=== PATIENT | male | born 1955 | race Caucasian/White ===

== ENCOUNTER → 2018-02-25 15:56 | Outpatient (CLI) | payer OTHER, SELFPAY ==
[2018-02-25 17:58] LABS: Hemoglobin A1c 5.6 % (4.2-6.3)
== END ==
PROVIDERS: Family Provider Family Medicine; PCP Family Medicine; Visit Provider Family Medicine
DX: E78.5 Hyperlipidemia, unspecified (principal); E11.9 Type 2 diabetes mellitus without complications
CPT/HCPCS: 36415; 83036

== ENCOUNTER → 2018-05-28 07:38 | Outpatient (CLI) | payer OTHER, SELFPAY ==
[2018-05-28 08:34] LABS: Cholesterol 113 mg/dL (200); Hemoglobin A1c 5.4 % (4.2-6.3); High Density Lipoprotein 48 mg/dL; Triglycerides 66 mg/dL; Very Low Density Lipoprotein 13 mg/dL (5-40)
== END ==
PROVIDERS: Family Provider Family Medicine; PCP Family Medicine; Visit Provider Family Medicine
DX: E78.5 Hyperlipidemia, unspecified (principal); E11.9 Type 2 diabetes mellitus without complications
CPT/HCPCS: 36415; 80061; 83036

== ENCOUNTER → 2018-11-26 07:18 | Outpatient (CLI) | payer OTHER, SELFPAY ==
[2018-11-22 09:36] VITALS: BMI 28.0
[2018-11-26 08:21] LABS: Albumin, Serum 3.8 g/dL (3.2-5.0); BUN 14 mg/dL (7-18); BUN/Creat Ratio 15.7 RATIO (10-20); Creatinine, Serum 0.89 mg/dL (0.70-1.30); EST Glomerular Filtration Rate 91 mL/min (>60); Est Glom Filt Rate - Afr Amer 110 mL/min (>60); Glucose 96 mg/dL (74-106); Protein, Total 6.9 g/dL (6.4-8.2)
[2018-11-26 08:22] LABS: ALB/GLOB Ratio 1.2 RATIO (0.9-2.4); AST(SGOT) 18 U/L (15-37); Alanine Aminotransfer ALT/SGPT 33 U/L (16-61); Alkaline Phosphatase 84 U/L (45-117); Anion Gap 6 (5-15); Calcium,Total 8.4 mg/dL (8.5-10.1); Chloride 108 mmol/L (98-107); Cholesterol 111 mg/dL (200); Globulin 3.1 g/dL (2.2-4.2); High Density Lipoprotein 47 mg/dL; Potassium 4.1 mmol/L (3.5-5.1); Sodium Level 142 mmol/L (136-145); Triglycerides 85 mg/dL; Very Low Density Lipoprotein 17 mg/dL (5-40)
--- OUTSIDE RECORDS SUMMARY | 2019-01-30 09:09 | XMS RPT_ITS ---
:1955 Author Organization OHIP Care Team Providers Name Role Phone Chaz Sanderslas Attending Unavailable Brown, Arsenio Referring Unavailable Brown, Arsenio Attending Unavailable Brown, Arsenio Referring Unavailable Brown, Arsenio Primary Care Unavailable Brown, Arsenio Attending Unavailable Willt, Song Referring Unavailable Wayt, Song Primary Care Unavailable Brown, Arsenio Attending Unavailable Brown, Arsenio Primary Care Unavailable Brown, Arsenio Attending Unavailable Wayt, Song Referring Unavailable Brown, Arsenio Primary Care Unavailable Brown, Arsenio Attending Unavailable Brown, Arsenio Referring Unavailable Brown, Arsenio Primary Care Unavailable Luh Harden Attending Unavailable Janneth Villeda Attending Unavailable PROBLEMS PROBLEMS DATE TYPE CONDITION / CODE ATTENDING STATUS SOURCE 11/26/2018 Unknown E78.5 - Brown, Rasenio Active [place] Hyperlipidemia, Community unspecified / Hospital E78.5(ICD-10) Repository 11/22/2018 Unknown E11.9 - Type 2 Brown, Arsenio Active [place] diabetes mellitus Community without Hospital complications / Repository E11.9(ICD-10) 11/22/2018 Unknown Z23 - Encounter for Arsenio Sanders Active [place] immunization / Community Z23(ICD-10) Hospital Repository PROCEDURES PROCEDURES No Procedure Records FoundRESULTS RESULTS COMPREHENSIVE METABOLIC Collected: 11/26/2018 Status: F Source: [place] PROFIL 7:27 AM [facility] HOSPITAL REPOSITORY TYPE CODE TESTS RESULT OUT OF RANGE REFERENCE UNITS LAB L501.0100 74-106 mg/dL Normal GLU 96 Result Comment: Please note revised GLUCOSE reference range effective 2017. LAB L501.1000 7-18 mg/dL Normal BUN 14 LAB L501.1100 0.70-1.30 mg/dL Normal CREAT,SERUM 0.89 Result Comment: The validity of the calculated GFR AND GFRAA in patients over 70 years has not been determined. Clinical correlation is essential. LAB L501.1110 >60 mL/min Normal EST GFR 91 Result Comment: Non- GFR Calc LAB L501.1115 >60 mL/min Normal EST GFR - AA 110 Result Comment: GFR Calc LAB L501.1300 10-20 RATIO Normal BUN/CRE 15.7 LAB L501.1500 6.4-8.2 g/dL T Normal PROT 6.9 LAB L501.1800 3.2-5.0 g/dL Normal ALB 3.8 LAB L501.1950 2.2-4.2 g/dL Normal GLOB 3.1 LAB L501.2000 0.9-2.4 RATIO Normal A/G 1.2 LAB L501.2200 8.5-10.1 mg/dL Low CA 8.4 LAB L501.4100 15-37 U/L Normal AST 18 LAB L501.4305 45-117 U/L Normal ALK P 84 LAB L501.4405 16-61 U/L Normal ALT 33 LAB L501.4600 0.20-1.00 mg/dL T Normal BILI 0.90 LAB L501.5300 136-145 mmol/L NA Normal 142 LAB L501.5600 3.5-5.1 mmol/L K Normal 4.1 LAB L501.5900 98-107 mmol/L High CL 108 LAB L501.6100 21.0-32.0 mmol/L Normal CO2 28.0 LAB L501.6200 5-15 Normal GAP 6 Performed By: #### L500.4050, L500.4100 #### [facility] [address] [place], [address] LIPID PROFILE Collected: 11/26/2018 Status: F Source: [place] 7:27 AM [facility] REPOSITORY TYPE CODE TESTS RESULT OUT OF RANGE REFERENCE UNITS LAB L501.4900 200 mg/dL Normal CHOL 111 Result Comment: <200 mg/dL Desirable 200-240 mg/dL Borderline >240 mg/dL High Risk LAB L501.5000 mg/dL Normal TRIG 85 Result Comment: The drugs N-Acetylcysteine and Metamizole may falsely depress this assay. Serum Triglycerides Reference Interval Normal <150 mg/dL Borderline high 150 - 199 mg/dL High 200 - 499 mg/dL Very High > or = 500 mg/dL LAB L501.6400 mg/dL Normal HDL 47 Result Comment: The drugs N-Acetylcysteine and Metamizole may falsely depress this assay. Reference Range HDL <40 mg/dL Low HDL Cholesterol HDL >or= 60 mg/dL High HDL Cholesterol LAB L501.6500 0-130 mg/dL Normal LDL 47 LAB L501.6600 5-40 mg/dL Normal VLDL 17 Performed By: #### L500.4050, L500.4100 #### [facility] [address] [place], [address] INTERNAL MEDICINE Observed: 11/22/2018 Status: F Source: [place] OFFICE VISIT 11:59 AM [facility] REPOSITORY [facility] [address] [place] [address] [place] [address] OFFICE VISIT Date of Service: 11/22/18 MR#: [id number] Acct: [id number] Name: ORLY OKEEFE Rep #: [id number] : 1955 Provider: Arsenio Sanders DO Age/Sex: 63/M Location: [facility] Status: Signed with Addenda ADDENDUM by Luh Harden on 11/22/18 at 1152 OFFICE PROCEDURES Office Procedure Documentation entered by Luh Harden 11/22/18 11:59: Office Meds Flucelvax Quad [id number] (PF) Performing Provider: Arsenio Sanders DO Administered by: Luh Harden on 11/22/18 11:56 Dose Route Admin Location Lot Number Expiration Date NDC Screen Printing Inspector 60 mcg IM Left Deltoid [id number] 05/07/19 34430-211-76 [employer] 11/22/18 1159 <Electronically signed by Luh Harden > Date Luh Harden cc: * Signed Intake Vital Signs11/22/18 Body Mass Index (BMI) 28.0 11/22/18 Height 5 ft 9 in 11/22/18 Weight: 202 lb 11/22/18 Body Mass Index (BMI) 29.8 11/22/18 Blood Pressure 148/74 H Intake Visit Reasons: 6 M FU Chief Complaint: Diabetes Check Is patient in pain?: No Allergies No Known Allergies Allergy (Verified 11/22/18 09:36) Medications Blood Sugar Diagnostic [One Touch Ultra Test Strips] 1 box ACHS #100 strip 03/05/17 [Rx Confirmed 11/22/18] Lancets [Onetouch Suresoft Lancing Dev] 1 box ACHS #100 ea 03/05/17 [Rx Confirmed 11/22/18] aspirin 81 mg tablet,delayed release 81 mg PO QDAY 02/24/18 [History Confirmed 11/22/18] atorvastatin 10 mg tablet 10 mg PO QDAY #90 tab 06/13/18 [Rx Confirmed 11/22/18] pen needle, diabetic 31 gauge x 5/16 See Dose Instructions .ROUTE .MEDSUPPLY #30 ea 08/29/18 [Rx Confirmed 11/22/18] lisinopril 5 mg tablet 5 mg PO QDAY #90 tab 09/05/18 [Rx Confirmed 11/22/18] insulin glargine (U-100) 100 unit/mL (3 mL) subcutaneous pen 15 unit SC QHS #15 ml 09/14/18 [Rx Confirmed 11/22/18] metformin 500 mg tablet 500 mg PO BIDCM #60 tab 10/12/18 [Rx Confirmed 11/22/18] PFSH Medical History Type 2 diabetes mellitus (Chronic) Hyperlipemia (Chronic) Surgical History History of tonsillectomy (Acute) Family History Mother Diabetes Breast cancer Cancer ovarian Heart disease Father Hypertension Brother Diabetes Social History Smoking Status: Never smoker alcohol intake: never substance use type: does not use what type of physical activity do you participate in: none HPI HPI Chief Complaint: Diabetes Check Details: ORLY OKEEFE, is a 63 M who presents to the office today for a recheck on his diabetes he voices no new complaints. ROS Const Constitutional: No chills, fatigue, fever(s), frequent falls, malaise, weakness, sleep problems or change in appetite Eyes Eyes: No blurry vision, change in vision, double vision, discharge or visual disturbances ENT ENT: No abnormal hearing, ear pain, ear pressure, tinnitus or dizziness/vertigo Resp Respiratory: No cough, shortness of breath or wheezing Cardio Cardiology: No chest pain at rest, chest pain with exertion, shortness of breath, dyspnea on exertion, generalized swelling, irregular heart rhythm, lightheadedness, orthopnea, fast heart rate or palpitations Gastro GI: No abdominal pain, change in bowel habits, constipation, diarrhea, nausea/dyspepsia or vomiting Genitourinary Male: No difficulty urinating, burning urination, painful urination, urinary incontinence, urinary frequency, urinary urgency, urinary hesitancy, urinary retention, blood in urine, Frequent nighttime urination/ nocturia, sexual problems, testicle lump or testicle pain Musc Musculoskeletal: No joint pain, back pain, joint swelling, limited range of motion, numbness, tingling or muscle weakness Skin Skin: No change in skin color, itching, rash or wounds Breast Breast: No breast lump or breast pain Neuro Neurology: No frequent falls, weakness, visual disturbances, abnormal hearing, numbness, tingling, unsteady gait/balance, dizziness, loss of vision or memory loss Psych Psychiatric: No change in appetite, No memory loss, No anxiety, No depression, No Thoughts of harming yourself/Others Endo Endocrine: No fatigue, heat intolerance, increased thirst/drinking, increased hunger or increased urination Aller/Imm Allergy/Immunologic: No wheezing, itchy eyes or seasonal allergy symptoms Evans/Lymp Hematologic/Lymphatic: No easy bleeding, easy bruising or enlarged lymph nodes Exam Const General: cooperative, healthy appearing Orientation: oriented x3 Neck Neck: no lymphadenopathy Neck mass: No Resp Effort AND Inspection: normal respiratory effort Auscultation: Bilateral: Clear to Auscultation Cardio Rate: regular rate Rhythm: regular rhythm GI Inspection: normal to inspection Musc Musculoskeletal: No muscle weakness Skin General: no rashes or lesions noted Neuro General: normal sensation to monofilament Psych Appearance: grossly normal Results POC A1C POC A1C 5.8 % Last Edit by Luh Harden on 11/22/18 09:41 Assessment AND Plan Problems 1. Mixed hyperlipidemia E78.2 2. Type 2 diabetes mellitus E11.9 Plan This patient is doing quite well hemoglobin A1c is remain almost in the nondiabetic range. 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 It is been years since he said lipid studies and renal function studies and so these were done. Orders Orders: Medications New: Flucelvax Quad 2630-3141 (PF) (flu vac qs 2018(4 60 mcg (0.5 mL) IM ONCE 0.5 mL 0RF NS Z23 yr up)CD(PF)) Plan Detail Follow Up 6 Months Coding Level of Care Code Off vis,est,level 3 Diagnoses Mixed hyperlipidemia E78.2 Hyperlipidemia type: mixed hyperlipidemia Type 2 diabetes mellitus E11.9 11/22/18 1009 <Electronically signed by Arsenio Sanders DO> Date Arsenio Sanders DO Cosigner Signature: Date (if applicable) CC: LIPID PROFILE Collected: 05/28/2018 Status: F Source: [place] 7:47 AM [facility] REPOSITORY TYPE CODE TESTS RESULT OUT OF RANGE REFERENCE UNITS LAB L501.4900 200 mg/dL Normal CHOL 113 Result Comment: <200 mg/dL Desirable 200-240 mg/dL Borderline >240 mg/dL High Risk LAB L501.5000 mg/dL Normal TRIG 66 Result Comment: The drugs N-Acetylcysteine and Metamizole may falsely depress this assay. Serum Triglycerides Reference Interval Normal <150 mg/dL Borderline high 150 - 199 mg/dL High 200 - 499 mg/dL Very High > or = 500 mg/dL LAB L501.6400 mg/dL Normal HDL 48 Result Comment: The drugs N-Acetylcysteine and Metamizole may falsely depress this assay. Reference Range HDL <40 mg/dL Low HDL Cholesterol HDL >or= 60 mg/dL High HDL Cholesterol LAB L501.6500 0-130 mg/dL Normal LDL 52 LAB L501.6600 5-40 mg/dL Normal VLDL 13 Performed By: #### L500.4100, L501.9985 #### [facility] [address] [place], [address] HEMOGLOBIN A1C Collected: 05/28/2018 Status: F Source: [place] 7:47 AM [facility] REPOSITORY TYPE CODE TESTS RESULT OUT OF RANGE REFERENCE UNITS LAB L501.9985 4.2-6.3 % Normal HGB A1C 5.4 Performed By: #### L500.4100, L501.9985 #### [facility] [address] [place], [address] INTERNAL MEDICINE Observed: 05/25/2018 Status: F Source: [place] OFFICE VISIT 9:29 AM [facility] REPOSITORY [facility] [address] [place] [address] [place] [address] OFFICE VISIT Date of Service: 05/25/18 MR#: [id number] Acct: [id number] Name: ORLY OKEEFE Rep #: [id number] : 1955 Provider: Arsenio Sanders DO Age/Sex: 62/M Location: [facility] Status: Signed Intake Vital Signs05/25/18 Height 5 ft 9 in 05/25/18 Weight: 190 lb 05/25/18 Body Mass Index (BMI) 28.0 05/25/18 Blood Pressure 123/71 Intake Visit Reasons: diabetic check Chief Complaint: Diabetes Check Is patient in pain?: No Allergies No Known Allergies Allergy (Verified 05/25/18 08:58) Medications Blood Sugar Diagnostic [One Touch Ultra Test Strips] 1 box ACHS #100 strip 03/05/17 [Rx Confirmed 05/25/18] Insulin Glargine [Lantus (BKC)] 50 units SC QHS #5 pen 03/05/17 [Rx Confirmed 05/25/18] Lancing Device/Lancets [Onetouch Suresoft Lancing Dev] 1 box [facility] #100 ea 03/05/17 [Rx Confirmed 05/25/18] aspirin 81 mg tablet,delayed release 81 mg PO QDAY 02/24/18 [History Confirmed 05/25/18] atorvastatin 10 mg tablet 10 mg PO QDAY 02/24/18 [History Confirmed 05/25/18] lisinopril 5 mg tablet 5 mg PO QDAY 02/24/18 [History Confirmed 05/25/18] metformin 500 mg tablet 500 mg PO BIDCM #60 tab 04/28/18 [Rx Confirmed 05/25/18] PFSH Medical History Type 2 diabetes mellitus (Chronic) Hyperlipemia (Chronic) Surgical History History of tonsillectomy (Acute) Family History Mother Diabetes Breast cancer Cancer ovarian Heart disease Father Hypertension Brother Diabetes Social History Smoking Status: Never smoker alcohol intake: never substance use type: does not use what type of physical activity do you participate in: none HPI HPI Chief Complaint: Diabetes Check Details: ORLY OKEEFE, is a 62 M who presents to the office today for ROS Const Constitutional: No chills, fatigue, fever(s), frequent falls, malaise, weakness, sleep problems or change in appetite Eyes Eyes: No blurry vision, change in vision, double vision, discharge or visual disturbances ENT ENT: No abnormal hearing, ear pain, ear pressure, tinnitus or dizziness/vertigo Resp Respiratory: No cough, shortness of breath or wheezing Cardio Cardiology: No chest pain at rest, chest pain with exertion, shortness of breath, dyspnea on exertion, generalized swelling, irregular heart rhythm, lightheadedness, orthopnea, fast heart rate or palpitations Gastro GI: No abdominal pain, change in bowel habits, constipation, diarrhea, nausea/dyspepsia or vomiting Genitourinary Male: No difficulty urinating, burning urination, painful urination, urinary incontinence, urinary frequency, urinary urgency, urinary hesitancy, urinary retention, blood in urine, Frequent nighttime urination/ nocturia, sexual problems, testicle lump or testicle pain Musc Musculoskeletal: No joint pain, back pain, joint swelling, limited range of motion, muscle weakness, numbness or tingling Skin Skin: No change in skin color, itching, rash or wounds Breast Breast: No breast lump or breast pain Neuro Neurology: No frequent falls, weakness, abnormal hearing, numbness, tingling, unsteady gait/balance, dizziness, loss of vision, memory loss or visual disturbances Psych Psychiatric: No memory loss, No anxiety, No change in appetite, No depression, No Thoughts of harming yourself/Others Endo Endocrine: No fatigue, heat intolerance, increased thirst/drinking, increased hunger or increased urination Aller/Imm Allergy/Immunologic: No wheezing, itchy eyes or seasonal allergy symptoms Evans/Lymp Hematologic/Lymphatic: No easy bleeding, easy bruising or enlarged lymph nodes Exam Const General: cooperative, healthy appearing Orientation: oriented x3 Neck Neck: no lymphadenopathy Neck mass: No Resp Effort AND Inspection: normal respiratory effort Auscultation: Bilateral: Clear to Auscultation Cardio Rate: regular rate Rhythm: regular rhythm GI Inspection: normal to inspection Musc Musculoskeletal: No muscle weakness Skin General: no rashes or lesions noted Neuro General: normal sensation to monofilament Psych Appearance: grossly normal Assessment AND Plan Problems 1. Type 2 diabetes mellitus E11.9 2. Hyperlipemia E78.5 Plan This patient was here for diabetic check his last A1c was in the upper fives he voices no complaints he is no longer using short acting insulin nor do I feel he needs to I am considering decreasing his long-acting insulin if his hemoglobin A1c is remain this low but his control is extremely good and physical is normal I do not see any reason to see him more frequently than every six-month basis unless problems arise. Orders Orders: Plan Detail Follow Up 6 Months Coding Level of Care Code Off vis,est,level 3 Diagnoses Type 2 diabetes mellitus E11.9 Hyperlipemia E78.5 05/25/18 0929 <Electronically signed by Arsenio R Brown DO> Date Arsenio Sanders DO [facility] Signature: Date (if applicable) CC: HEMOGLOBIN A1C Collected: 02/25/2018 Status: F Source: [place] 4:03 PM [facility] REPOSITORY TYPE CODE TESTS RESULT OUT OF RANGE REFERENCE UNITS LAB L501.9985 4.2-6.3 % Normal HGB A1C 5.6 Performed By: #### L501.9985 #### [facility] [address] [place], [address] INTERNAL MEDICINE Observed: 02/24/2018 Status: F Source: [place] OFFICE VISIT 9:11 AM [facility] REPOSITORY [facility] [address] [place] [address] [place] [address] OFFICE VISIT Date of Service: 02/24/18 MR#: [id number] Acct: [id number] Name: ORLY OKEEFE Rep #: [id number] : 1955 Provider: Arsenio Sanders DO Age/Sex: 62/M Location: [facility] Status: Signed Intake Vital Signs02/24/18 Height 5 ft 9 in 02/24/18 Weight: 198 lb 02/24/18 Body Mass Index (BMI) 29.2 02/24/18 Blood Pressure 129/72 02/24/18 Blood Pressure Location Lt brachial 02/24/18 Blood Pressure Position Sitting Intake Visit Reasons: DIABETIC CHECK Chief Complaint: follow-up visit Is patient in pain?: No Allergies No Known Allergies Allergy (Verified 03/06/17 12:13) Medications Blood Sugar Diagnostic [One Touch Ultra Test Strips] 1 box ACHS #100 strip 03/05/17 [Rx Confirmed 02/24/18] Insulin Glargine [Lantus (BKC)] 50 units SC QHS #5 pen 03/05/17 [Rx Confirmed 02/24/18] Lancing Device/Lancets [Onetouch Suresoft Lancing Dev] 1 box ACHS #100 ea 03/05/17 [Rx Confirmed 02/24/18] Metformin HCl [Glucophage] 500 mg PO BIDCM #60 tab 03/05/17 [Rx Confirmed 02/24/18] Insulin Regular, Human [Novolin R] 100 unit IJ PRN #1 vial 03/06/17 [Rx Confirmed 02/24/18] aspirin 81 mg tablet,delayed release 81 mg PO QDAY 02/24/18 [History Confirmed 02/24/18] atorvastatin 10 mg tablet 10 mg PO QDAY 02/24/18 [History Confirmed 02/24/18] lisinopril 5 mg tablet 5 mg PO QDAY 02/24/18 [History Confirmed 02/24/18] PFSH Medical History Type 2 diabetes mellitus (Chronic) Hyperlipemia (Chronic) Surgical History History of tonsillectomy (Acute) Family History Mother Diabetes Breast cancer Cancer ovarian Heart disease Father Hypertension Brother Diabetes Social History Smoking Status: Never smoker alcohol intake: never substance use type: does not use what type of physical activity do you participate in: none HPI HPI Chief Complaint: follow-up visit Details: ORLY OKEEFE, is a 62 M who presents to the office today for follow up on his diabetes ROS Const Constitutional: No weight change, body ache, chills, fatigue, sleep problems, fever(s), change in appetite, snoring, weakness, frequent falls, headache(s) or excessive sweating Eyes Eyes: No change in vision, eye pain, light sensitivity or blurry vision ENT ENT: No headache(s), abnormal hearing, ear pain, tinnitus, nasal congestion, sore throat or neck pain Resp Respiratory: No snoring, cough, shortness of breath or wheezing Cardio Cardiology: No excessive sweating, chest pain at rest, chest pain with exertion, shortness of breath, dyspnea on exertion, palpitations, orthopnea or lightheadedness Gastro GI: No abdominal pain, change in bowel habits, constipation, diarrhea, vomiting, nausea/dyspepsia or cramping Genitourinary Male: No painful urination, urinary incontinence, urinary frequency, urinary urgency, blood in urine, testicle pain or other Musc Musculoskeletal: No neck pain, abnormal walking, joint pain, back pain, limited range of motion, numbness or tingling Skin Skin: No redness, dry skin, itching, lesions, wounds or rash Neuro Neurology: No weakness, frequent falls, headache(s), abnormal hearing, abnormal walking, numbness, tingling, abnormal speech, dizziness or memory loss Psych Psychiatric: No change in appetite, No memory loss, No anxiety, No depression, No Thoughts of harming yourself/Others Endo Endocrine: No fatigue, excessive sweating, cold intolerance, increased thirst/drinking, heat intolerance, flushing or increased hunger Aller/Imm Allergy/Immunologic: No wheezing, itchy eyes, hives or seasonal allergy symptoms Evans/Lymp Hematologic/Lymphatic: No easy bleeding, easy bruising or enlarged lymph nodes Exam Const General: cooperative, healthy appearing Nutritional Appearance: average body habitus Orientation: oriented x3 Neck Neck: no lymphadenopathy Neck mass: No Thyroid: thyroid normal Resp Effort AND Inspection: normal respiratory effort Auscultation: Bilateral: Clear to Auscultation Cardio Palpation: normal PMI Rate: regular rate Rhythm: regular rhythm Heart Sounds: S1 normal, S2 normal Skin General: no rashes or lesions noted Neuro General: normal sensation to monofilament Assessment AND Plan Problems 1. Type 2 diabetes mellitus E11.9 Plan This patient is here for routine diabetic checkup he only takes 5-10 units of Lantus in the evening and his sugars are almost always between 101 110. He said a couple episodes of hypoglycemia so he has not taken the NovoLog for a long time and I encouraged him to not take the NovoLog as his risk of hypoglycemia is way worse than his risk of hyperglycemia hemoglobin A1c's were ordered I am going to check his old chart to see what of the labs might be needed and I will contact him with that information upon results of the hemoglobin A1c. Orders Orders: Medications Discontinued: erythromycin Discontinued Reason: Pt no longer t1 applic LEFT EYE 4X/DAY Janneth arredondo Plan Detail Follow Up 3 Months Coding Level of Care Code Off vis,est,level 3 Diagnoses Type 2 diabetes mellitus E11.9 02/24/18 0911 <Electronically signed by Arsenio Sanders DO> Date Arsenio Sanders DO Cosigner Signature: Date (if applicable) CC: ALLERGIES ALLERGIES DATE TYPE / CODE NAME / CODE REACTION SEVERITY SOURCE 11/22/2018 Drug No Known Unknown [place] [facility] Allergy/4160 Allergies/F00 Hospital 38196(SNOMED [id number](RXNOR Repository CT) M) ENCOUNTERS ENCOUNTERS ADMIT/DISCHARGE ACCOUNT ADMITTING ENCOUNTER LOCATION SOURCE NUMBER CLASS 11/26/2018 [id number] Ambulatory [place] 8 [facility] ing:LAB Repository 11/22/2018/ [id number] Ambulatory BMSBuilding:B [place] 9 0 [facility] Repository 09/14/2018 [id number] Ambulatory BMSBuilding:B [place] 1 [facility] Repository 08/25/2018 [id number] Ambulatory BMSBuilding:B [place] 1 [facility] Repository 05/28/2018 [id number] Ambulatory [place] 2 [facility] ing:LAB Repository 05/25/2018/ [id number] Ambulatory BMSBuilding:B [place] 8 6 [facility] Repository 02/25/2018 [id number] Ambulatory [place] 8 [facility] ing:MTLAB Repository 02/24/2018/ [id number] Ambulatory BMSBuilding:B [place] 8 3 [facility] Repository PAYERS PAYERS ENCOUNTER GUARANTOR PAYER SUBSCRIBER SOURCE 11/26/2018 ORLY E Primary ORLY E [place] [id number] Insurance:HEALTH PLAN GUTHRIEDOB: [id number]: Repository [id number]: [phone] [id number] [phone] () Date: [facility] [address], [place] [address]UP: 11/26/2018 Secondary NOT GIVENUNK [place] Insurance:SELF PAY [facility] Number: Effective Repository Date:2018-11-26 11/22/2018 ORLY Primary ORLY [place] [id number] Insurance:HEALTH PLAN GUTHRIEDOB: Community DONNIE OF [address]09-19[facility] Number: Repository [id number]: 330 [id number] [phone] () Date: [facility] [address] [place] [id number]: 11/22/2018 Secondary NOT GIVENUNK [place] Insurance:SELF PAY [facility] Hospital Number: Effective Repository Date:2018-11-14 09/14/2018 ORLY Primary ORLY [place] [id number] Insurance:HEALTH PLAN GUTHRIEDOB: Community [place] [id number] Number: Repository [id number]: 330 [id number] [phone] () Date: [facility] [address] [place] [address] [id number]: 09/14/2018 Secondary NOT GIVENUNK [place] Insurance:SELF PAY [facility] Effective Repository Date:2018-09-14 08/25/2018 ORLY Primary ORLY [place] [id number] Insurance:HEALTH PLAN GUTHRIEDOB: Community DONNIE OF [address] [address]-19[facility] Number: Repository [id number]: [phone] [id number] [phone] () Date: [facility] [address] [place] [address] [id number]: 08/25/2018 Secondary NOT GIVENUNK [place] Insurance:SELF PAY [facility] Number: Effective Repository Date:2018-08-25 05/28/2018 ORLY Primary ORLY [place] [id number] Insurance:HEALTH PLAN GUTHRIEDOB: Community DONNIE OF [address]-19[facility] Number: Repository [id number]: [phone] [id number] [phone] () Date: [facility] [address] [place] [address] [id number]: 05/28/2018 Secondary NOT GIVENUNK [place] Insurance:SELF PAY [facility] Number: Effective Repository Date:2018-05-28 05/25/2018 ORLY Primary ORLY [place] [id number] Insurance:HEALTH PLAN GUTHRIEDOB: Community DON[place]IE [place] [id number] Number: Repository [id number]: [phone] [id number] [phone] () Date: DEDE [facility] [address] [place] [address] [id number]: 05/25/2018 Secondary NOT GIVENUNK [place] Insurance:SELF PAY [facility] Number: Effective Repository Date:2018-05-18 02/25/2018 ORLY Primary ORLY [place] [id number] Insurance:HEALTH PLAN GUTHRIEDOB: Community DONNIE OF [facility] [id number] Number: Repository [id number]: [id number] [phone] Date: () DEDE [facility] [address] [place] [address] [id number]: 02/25/2018 Secondary NOT GIVENUNK [place] Insurance:SELF PAY [facility] Number: Effective Repository Date:2018-02-25 02/24/2018 ORLY Primary ORLY [place] [id number] Insurance:HEALTH PLAN GUTHRIEDOB: Community DONNIE [facility] [id number] [facility] Number: Repository [id number]: [id number] [phone] Date: () [facility] [address] [place] [address] [id number]: 02/24/2018 Secondary NOT GIVENUNK [place] Insurance:SELF PAY [facility] Effective Repository Date:2018-02-24
== END ==
PROVIDERS: Family Provider Family Medicine; PCP Family Medicine; Referring Provider Family Medicine; Visit Provider Family Medicine
DX: E78.5 Hyperlipidemia, unspecified (principal)
CPT/HCPCS: 36415; 80053; 80061

== ENCOUNTER → 2019-11-22 08:56 | Outpatient (CLI) | payer MEDICARE, SELFPAY ==
[2019-11-22 08:41] VITALS: BMI 28.0
[2019-11-22 13:01] LABS: ALB/GLOB Ratio 1.2 RATIO (0.9-2.4); AST(SGOT) 18 U/L (15-37); Alanine Aminotransfer ALT/SGPT 35 U/L (16-61); Alkaline Phosphatase 83 U/L (45-117); Anion Gap 5 (5-15); BUN 14 mg/dL (7-18); BUN/Creat Ratio 15.2 RATIO (10-20); Calcium,Total 9.6 mg/dL (8.5-10.1); Chloride 107 mmol/L (98-107); Cholesterol 127 mg/dL (200); Creatinine, Serum 0.92 mg/dL (0.70-1.30); EST Glomerular Filtration Rate 88 mL/min (>60); Est Glom Filt Rate - Afr Amer 106 mL/min (>60); Globulin 3.4 g/dL (2.2-4.2); Glucose 94 mg/dL (74-106); High Density Lipoprotein 47 mg/dL; Potassium 4.4 mmol/L (3.5-5.1); Protein, Total 7.4 g/dL (6.4-8.2); Sodium Level 139 mmol/L (136-145); Triglycerides 110 mg/dL; Very Low Density Lipoprotein 22 mg/dL (5-40)
== END ==
PROVIDERS: Family Provider Family Medicine; PCP Family Medicine; Visit Provider Family Medicine
DX: E11.9 Type 2 diabetes mellitus without complications (principal)
CPT/HCPCS: 36415; 80053; 80061

== ENCOUNTER → 2025-03-13 | Outpatient (CLI) | payer MEDICARE, OTHER, SELFPAY ==
[2025-03-13 17:30] LABS: ALB/GLOB Ratio 1.5 RATIO (0.9-2.4); AST(SGOT) 13 U/L (<=37); Alanine Aminotransfer ALT/SGPT 16 U/L (<=46); Albumin, Serum 4.5 g/dL (3.4-4.8); Alkaline Phosphatase 153 U/L (40-129); Anion Gap 11 (5-15); BUN 26 mg/dL (4-19); BUN/Creat Ratio 23.8 RATIO (10-20); Calcium,Total 10.7 mg/dL (7.6-11.0); Carbon Dioxide 24.7 mmol/L (21.0-32.0); Chloride 97 mmol/L (98-108); Creatinine, Serum 1.09 mg/dL (0.70-1.20); EST Glomerular Filtration Rate 73 (>60); Globulin 2.9 g/dL (2.2-4.2); Glucose 487 mg/dL (70-99); Potassium 5.3 mmol/L (3.3-5.1); Protein, Total 7.4 g/dL (5.9-8.4); Sodium Level 133 mmol/L (133-145); Total Bilirubin 0.68 mg/dL (0.00-1.30)
== END | disposition home or self-care (01) ==
LOC: BIMLAB 14:55
PROVIDERS: PCP Family Medicine; Visit Provider Family Medicine
DX: E11.65 Type 2 diabetes mellitus with hyperglycemia (principal)
CPT/HCPCS: 36415; 80053